=== PATIENT | male | born 1955 | race Two or more races ===

== ENCOUNTER 2016-07-27 21:02 | Emergency (ER) | payer SELFPAY ==
[2016-07-27 21:12] VITALS: BP 141/85; RESP 18; TEMP 97.9; O2SAT 100
--- NOTE | 2016-07-27 21:48 | ED PDOC ---
HPI: Chest Pain Time Seen by Provider: 07/27/16 21:14 Chief Complaint (Nursing): Palpitations Chief Complaint (Provider): Palpitations History Per: Patient, Family () History/Exam Limitations: no limitations Onset/Duration Of Symptoms: Days (x2-3), Intermittent Episodes Current Symptoms Are (Timing): Gone Now Associated Symptoms: denies: Nausea, Dyspnea, Other (no dizziness, chest pain, fever, cough, vomiting, diarrhea) Additional Complaint(s): Matthias Diaz is a 61 year old male, young for stated age with a past medical history inclusive of HTN and dyslipidemia, who presents to the ED on 07/27/16, accompanied by his , for the evaluation of intermittent episodes of palpitations that he has experienced over the past 2-3 days; not present upon initial ED evaluation. Patient reports having experienced similar episodes in the past, and states that he had chosen to present today for evaluation secondary to their persistence. Denies fever, cough, chest pain, shortness of breath, nausea, vomiting, diarrhea or dizziness and states that his activity level has not been affected by his symptoms. Labs conducted within the last year, inclusive of liver function, thyroid function and routine bloodwork, all reportedly returned as normal. Of note, patient does report a previous history of PVC's, though he notes them to be paradoxically improved with escalation of his heart rate during periods of exertion. He denies excessive caffeine intake, instead reporting that it has in fact decreased. 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 PMD: Claudia Mclaughlin Past Medical History Reviewed: Historical Data, Nursing Documentation, Vital Signs Vital Signs: Last Vital Signs Temp 97.9 F 07/27/16 21:05 Pulse 83 07/27/16 22:17 Resp 18 07/27/16 21:05 BP 141/85 07/27/16 21:05 Pulse Ox 100 07/27/16 22:17 - Medical History PMH: HTN Other PMH: dyslipidemia - Surgical History Surgical History: No Surg Hx - Family History Family History: States: Unknown Family Hx - Living Arrangements Living Arrangements: With Family - Social History Ex-Smoker (has not smoked in the last 12 months): Yes (quit >20 years ago) Alcohol: Occasional (scarcely) - Allergies Allergies/Adverse Reactions: Allergies Allergy/AdvReac Type Severity Reaction Status Date / Time No Known Allergies Allergy Verified 07/27/16 21:05 Review of Systems ROS Statement: Except As Marked, All Systems Reviewed And Found Negative Constitutional: Negative for: Fever Cardiovascular: Positive for: Palpitations (intermittent, none in ED). Negative for: Chest Pain Respiratory: Negative for: Cough, Shortness of Breath Gastrointestinal: Negative for: Nausea, Vomiting, Diarrhea Physical Exam - Reviewed Nursing Documentation Reviewed: Yes Vital Signs Reviewed: Yes - Physical Exam Appears: Positive for: Non-toxic, No Acute Distress Head Exam: Positive for: ATRAUMATIC, NORMOCEPHALIC Skin: Positive for: Normal Color, Warm, Dry Eye Exam: Positive for: Normal appearance, PERRL ENT: Positive for: Normal ENT Inspection Neck: Positive for: Normal, Painless ROM, Supple Cardiovascular/Chest: Positive for: Regular Rate, Rhythm. Negative for: Murmur Respiratory: Positive for: Normal Breath Sounds. Negative for: Respiratory Distress Gastrointestinal/Abdominal: Positive for: Normal Exam, Soft. Negative for: Tenderness Back: Positive for: Normal Inspection Extremity: Positive for: Normal ROM (moving all extremities well) Neurologic/Psych: Positive for: Alert, Oriented - ECG ECG: Positive for: Interpreted By Me, Viewed By Me ECG Rhythm: Positive for: Sinus Rhythm, Premature Ventricular Contraction Rate: 83 O2 Sat by Pulse Oximetry: 100 (RA) Pulse Ox Interpretation: Normal Medical Decision Making Medical Decision Makin:14 Initial Impression: 61 year old male with palpitations in setting of known history of PVC's Initial Plan: * EKG * Labs * Troponin I * D-Dimer * PTT * PT * Reevaluation EKG performed at 21:09 shows NSR at 83bpm with PVC's. Patient has declined ordered labwork secondary to both his being asymptomatic at present and his intention to having rapid followup with his own [employer]. Patient commits to returning to ED should symptoms worsen and is medically stable for discharge home at this time. There is agreement to discharge plan. Scribe Attestation: Documented by Kenya Montano, acting as a scribe for Jesús Hickey MD. Provider Scribe Attestation: All medical record entries made by the Scribe were at my direction and personally dictated by me. I have reviewed the chart and agree that the record accurately reflects my personal performance of the history, physical exam, medical decision making, and the department course for this patient. I have also personally directed, reviewed, and agree with the discharge instructions and disposition. Disposition - Clinical Impression Clinical Impression: Palpitations, PVC (premature ventricular contraction) - Patient ED Disposition Is Patient to be Admitted: No Counseled Patient/Family Regarding: Studies Performed, Diagnosis, Need For Followup - Disposition Disposition: Routine/Home Disposition Time: 21:34 Condition: STABLE Instructions: Palpitations (ED), Premature Ventricular Contractions (ED)
[2016-07-27 22:17] VITALS: PULSE 83
--- NOTE | 2016-07-30 18:56 | CARD ---
APPROVED REPORT EKG Measurement Heart [id number] <Conclusion> Sinus rhythm with frequent premature ventricular complexes Otherwise normal ECG
== END 2016-07-27 21:40 | disposition home or self-care (01) ==
LOC: H.ER 21:02
DX: I49.3 Ventricular premature depolarization (principal); R00.2 Palpitations; Z87.891 Personal history of nicotine dependence; I10 Essential (primary) hypertension; E78.5 Hyperlipidemia, unspecified